=== PATIENT | male | born 1985 | race Caucasian/White ===

== ENCOUNTER 2021-01-24 13:28 | Emergency (ER) | payer OTHER ==
[~2021-01-24] VITALS: Ht 180.3 cm; Wt 68.0 kg
[2021-01-24] MEDS ORDERED: KEFLEX500 M1 PO (13:52)
[2021-01-24 16:00] VITALS: BP 133/58
== END 2021-01-24 16:01 ==
LOC: M.ERS 13:28
DX: S46.911A Strain of unspecified muscle, fascia and tendon at shoulder and upper arm level, right arm, initial encounter (principal); S61.212A Laceration without foreign body of right middle finger without damage to nail, initial encounter; S61.214A Laceration without foreign body of right ring finger without damage to nail, initial encounter; M25.521 Pain in right elbow; R07.81 Pleurodynia; F17.210 Nicotine dependence, cigarettes, uncomplicated; W18.39XA Other fall on same level, initial encounter; Y93.89 Activity, other specified; Y92.89 Other specified places as the place of occurrence of the external cause; Y99.8 Other external cause status